=== PATIENT | male | born 1955 | race Two or more races ===

== ENCOUNTER 2025-01-13 01:27 | Emergency (ER) | payer OTHER ==
[~2025-01-13] VITALS: Ht 165.1 cm; Wt 77.2 kg
--- NOTE | 2025-01-13 01:31 | ED.PDOC ---
General HPI Comments 69-year-old male presents to the ED chief complaint leaking Last catheter leg bag. Patient states recently had a Last placed for renal obstruction he notes currently is bag is leaking urine. Requesting a new bag. Denies dysuria, pain, gross blood in urine, flank pain, abdominal pain, nausea, vomiting, fever or chills. Chief Complaint: Urinary Time Seen by MD: 01:31 Reviewed notes: Nurses Notes, Medications, Allergies Information Source: Patient Past Medical History PAST MEDICAL HISTORY: Denies Surgical History: Denies all surgeries Family History Family History: Reviewed,noncontributory to illness Social History Smoker: Non-Smoker Alcohol: Denies ETOH Use Drugs: Denies Drug Use All Other Systems: Reviewed and Negative (See HPI) Physical Exam General Appearance: No Apparent Distress, Normal HEENT: Pharynx Normal, TMs Normal Neck: Full Range of Motion Respiratory: Lungs Clear, No Respiratory Distress, Normal Breath Sounds Cardiovascular: No Edema, No Murmur, Normal Peripheral Pulses, Regular Rate/Rhythm Breast Exam: Deferred Gastrointestinal: No Organomegaly, Non Tender, No Pulsatile Mass, Normal Bowel Sounds, Soft Genitalia: Deferred Pelvic: Deferred Rectal: Deferred Extremities: Normal range of motion, No pedal edema Musculoskeletal : Apperance: Normal Neurologic: Alert, No Motor Deficits, Normal Affect, Normal Mood, No Sensory Deficits Cerebellar Function: Normal Reflexes: NOT DONE Skin: Dry, Normal Color, Warm Lymphatic: No Adenopathy Was a procedure done? Was a procedure done?: No Differential Diagnosis Kidney stone (Female): N/A Kidney stone (Male): Urinary obstruction, Urolithiasis, Urinary tract infection Penile/Scrotal: N/A Urinary Problem (Male): UTI Urinary Problem (Female): N/A X-Ray, Labs, Meds, VS Vital Signs Date Time Temp Pulse Resp B/P (MAP) Pulse Ox O2 Delivery O2 Flow Rate FiO2 01/13/25 01:33 98.6 78 18 123/76 97 98.6 X-Ray, Labs, Meds, VS Comment Noted Last leg bag leaking. Bag replaced with a new bag no noted leaks positive output 300 mL. Patient requesting discharge at this time follow up with your PCP and urologist as scheduled. ER return precautions given patient indicates understanding and agrees with discharge plan of care Time of 1ST Reevaluation: 01:31 Reevaluation 1ST: Unchanged Time of 2ND Reevaluation: 01:45 Reevaluation 2ND: Improved Patient Education/Counseling: Diagnosis, Treatment, Prognosis, Need For Follow Up Family Education/Counseling: Diagnosis, Treatment, Prognosis, Need For Follow Up SEPSIS Sepsis Screen Vital Signs Date Time Temp Pulse Resp B/P (MAP) Pulse Ox O2 Delivery O2 Flow Rate FiO2 01/13/25 01:33 98.6 78 18 123/76 97 98.6 Departure 1 Departure Time of Disposition: 01:47 Impression: Primary Impression: Last catheter problem Qualified Codes: T83.9XXA - Unspecified complication of genitourinary p rosthetic device, implant and graft, initial encounter Disposition: 01 HOME / SELF CARE / HOMELESS Condition: Stable Discharged With: Self Critical Care Note Critical Care Time?: No Stability Stability form required: HIRAL Collins Jan 13, 2025 01:31
[2025-01-13 01:33] VITALS: BP 123/76; PULSE 78; RESP 18; TEMP 98.6; O2SAT 97
== END 2025-01-13 01:59 | disposition home or self-care (01) ==
LOC: ER 01:27
DX: T83.9XXA Unspecified complication of genitourinary prosthetic device, implant and graft, initial encounter (principal); Y92.89 Other specified places as the place of occurrence of the external cause